=== PATIENT | female | born 1965 | race Two or more races ===

== ENCOUNTER 2016-12-23 05:57 | Day surgery (SDC) | payer OTHER ==
[2016-12-20 14:29] VITALS: BMI 32.2
[~2016-12-23 05:57] MED LIST: HYDROmorphone 1 MG/ML 1 ML SYRINGE IVP PRN; LACTATED RINGERS 1,000 ML IV SCH; MIDAZOLAM 2 MG/2 ML VIAL IV PRN; ONDANSETRON 4 MG/2 ML VIAL IVP ONE; SCOPOLAMINE 1.5MG/72HR PATCH TRANSDERM ONE; ceFAZolin 2 GM in SODIUM CHLORIDE 0.9% 100 ML IVPB ONE
[2016-12-23 06:54] VITALS: TEMP 96.8
[2016-12-23] MEDS ORDERED: LIDOCAINE 1% 20 ML VIAL (10MG/ML) FOR IV START INTRADERMA ONE (07:10)
[2016-12-23] MEDS ORDERED: INSULIN LISPRO (humaLOG) 300 UNIT/3 ML VIAL SQ ONE (07:19)
[2016-12-23 07:23] LABS: Glucose,Whole Blood 271 mg/dL (75-99)
[2016-12-23] MEDS ORDERED: HEPARIN SODIUM,PORCINE 5,000 UNIT/ML 1 ML VIAL SQ ONE (07:35)
--- NOTE | 2016-12-23 07:35 | P.GSHP ---
History of Present Illness H&P Date: 12/23/16 CHIEF COMPLAINT: Cholecystitis HISTORY OF PRESENT ILLNESS: The patient is a 51-year-old female who presents with history of epigastric including right upper quadrant abdominal pain. She underwent diagnostic studies for her gallbladder. Separately her clinical picture was consistent with cholecystitis. Now she presents for surgical intervention. PAST MEDICAL HISTORY: Please see list PAST SURGICAL HISTORY: Please see list MEDICATIONS: Please see list ALLERGIES: Denies. SOCIAL HISTORY: No illicit drug use or recent tobacco use FAMILY HISTORY: Pertinent for gallbladder disease REVIEW OF ORGAN SYSTEMS: CONSTITUTIONAL: No reports of fevers or chills. HEENT: Denies any troubles with the vision or hearing. PHYSICAL EXAM: VITAL SIGNS: Afebrile vital signs stable GENERAL: Well-developed pleasant in no acute distress. HEENT: No scleral icterus. Extraocular movements grossly intact. Moist buccal mucosa. NECK: Supple without lymphadenopathy. CHEST: Unlabored respirations. Equal bilateral excursions. CARDIOVASCULAR: Regular rate regular rhythm rhythm. Distal 2+ pulses. ABDOMEN: Soft, nondistended. Tender along the epigastrium and right upper quadrant. MUSCULOSKELETAL: No clubbing, cyanosis, or edema. NEURO: Cranial nerves II to XII within normal limits. No focal or lateralizing signs. PSYCH: Alert and oriented to person, place and time. ASSESSMENT: 1. Epigastric and right upper quadrant abdominal pain 2. Chronic cholecystitis 3. Symptomatic gallstones. PLAN: 1. Will need a laparoscopic cholecystectomy possible open. Benefits and risks were described. 2. Heparin for DVT prophylaxis 5000 units. 3. Antibiotic prophylaxis. Past Medical History Past Medical History: Cancer, Diabetes Mellitus, Hypertension Additional Past Medical History / Comment(s): SKIN CANCER. NERVE DAMAGE. TINNITIS History of Any Multi-Drug Resistant Organisms: None Reported Past Surgical History: Hysterectomy, Orthopedic Surgery, Tonsillectomy Additional Past Surgical History / Comment(s): RT-CTR. FACIAL SX FOR SKIN CA Past Anesthesia/Blood Transfusion Reactions: Motion Sickness, Postoperative Nausea & Vomiting (PONV) Additional Past Anesthesia/Blood Transfusion Reaction / Comment(s): SLOW TO COME OUT OF ANESTHESIA Past Psychological History: Depression Smoking Status: Former smoker Past Alcohol Use History: None Reported Additional Past Alcohol Use History / Comment(s): QUIT SMOKING 2015 Past Drug Use History: None Reported - Past Family History Mother Family Medical History: No Reported History Medications and Allergies Home Medications Medication Instructions Recorded Confirmed Type Acyclovir [Zovirax] 400 mg PO BID 12/20/16 12/23/16 History Atenolol 100 mg PO DAILY 12/20/16 12/20/16 History Ca Carbonate/Vitamin D3/Vit K 1 each PO DAILY 12/20/16 12/23/16 History [Citracal Soft Chew] Citalopram Hydrobromide [CeleXA] 40 mg PO DAILY 12/20/16 12/20/16 History Cyclobenzaprine [Flexeril] 10 mg PO TID 12/20/16 12/23/16 History Ergocalciferol [Vitamin D2 50,000 units PO GALDAMEZ 12/20/16 12/23/16 History (DRISDOL)] Gabapentin 600 mg PO TID 12/20/16 12/20/16 History Glimepiride [Amaryl] 4 mg PO BID 12/20/16 12/20/16 History Losartan [Cozaar] 50 mg PO DAILY 12/20/16 12/20/16 History Magnesium Oxide [Mag-Ox] 400 mg PO BID 12/20/16 12/23/16 History Naproxen 500 mg PO Q12HR 12/20/16 12/20/16 History metFORMIN HCL 1,000 mg PO BID 12/20/16 12/20/16 History Allergies Allergy/AdvReac Type Severity Reaction Status Date / Time azithromycin Allergy ITCHING, Verified 12/20/16 14:16 N/V, BLURRED [place]ISION clonidine Allergy ITCHING, Verified 12/20/16 14:16 N/V, [place]UR[place] hydrochlorothiazide Allergy ITCHING, Verified 12/20/16 14:16 [From Dyazide] N/V, BLURRED [place]ISION lisinopril Allergy ITCHING, Verified 12/20/16 14:16 N/V, BLURRED [place] methylprednisolone Allergy ITCHING, Verified 12/20/16 14:16 [From Medrol] N/V, BLURRED [place]ISION metoprolol Allergy ITCHING, Verified 12/20/16 14:16 N/V, BLURRED [place]ISION triamterene [From Dyazide] Allergy ITCHING, Verified 12/20/16 14:16 N/V, BLURRED [place]ISION Surgical - Exam Vital Signs Temp Pulse Resp BP Pulse Ox 96.8 F L 69 18 143/88 98 12/23/16 06:53 12/23/16 06:53 12/23/16 06:53 12/23/16 06:53 12/23/16 06:53 Results - Labs Abnormal Lab Results - Last 24 Hours (Table) 12/23/16 Range/Units 07:04 POC Glucose (mg/dL) 271 H (75-99) mg/dL
[2016-12-23] MEDS ORDERED: NEOSTIGMINE 1 MG/ML 10 ML VIAL ONE (07:45)
[2016-12-23] MEDS ORDERED: GLYCOPYRROLATE 0.2 MG/ML 2 ML VIAL ONE (07:45)
[2016-12-23] MEDS ORDERED: SUCCINYLCHOLINE CHLORIDE 100 MG/5 ML SYR IV ONE (07:45)
[2016-12-23] MEDS ORDERED: PROPOFOL 10 MG/ML 20 ML VIAL IV ONE (07:45)
[2016-12-23] MEDS ORDERED: ROCURONIUM BROMIDE 10 MG/ML 10 ML VIAL IV ONE (07:45)
[2016-12-23] MEDS ORDERED: MIDAZOLAM 2 MG/2 ML VIAL ONE (07:45)
[2016-12-23] MEDS ORDERED: fentaNYL (PF) 50 MCG/ML 2 ML AMP ONE (07:45)
[2016-12-23] MEDS ORDERED: KETOROLAC 30 MG/ML 1 ML VIAL ONE (07:45)
[2016-12-23] MEDS ORDERED: LIDOCAINE 1% INJ 10MG/ML (20 ML MDV) ONE (07:45)
[2016-12-23] MEDS ORDERED: BUPIVACAIN-EPI 0.25%-1:200,000 30 ML VIAL SQ ONE (08:08)
[2016-12-23] MEDS ORDERED: LACTATED RINGERS 1,000 ML IV ONE (08:19)
--- NOTE | 2016-12-23 08:42 | P.OP ---
Date of Procedure: 12/23/16 Description of Procedure: SURGEON: BLANCA RAMÍREZ MD WARP TYING MACHINE KNOTTER: None. PREOPERATIVE DIAGNOSES: 1. Chronic Cholecystitis. 2. Symptomatic cholelithiasis. 3. Obesity, BMI 32.3. 4. Uncontrolled diabetes type 2. 5. Hypertensive heart disease without cardiomyopathy. 6. Family history of heart disease. POSTOPERATIVE DIAGNOSES: 1. Chronic Cholecystitis. 2. Symptomatic cholelithiasis. 3. Obesity, BMI 32.3. 4. Uncontrolled diabetes type 2. 5. Hypertensive heart disease without cardiomyopathy. 6. Family history of heart disease. 7. Hepatomegaly. 8. Nonalcoholic fatty liver disease. OPERATION: Laparoscopic cholecystectomy ANESTHESIA: General with 30 mL 0.25% Marcaine with epinephrine. ESTIMATED BLOOD LOSS: 5 mL. SPECIMENS REMOVED: Gallbladder. COMPLICATIONS: None. INDICATIONS: The patient is a 51-year-old female who presents with chronic cholelcystitis. Surgical intervention with a laparoscopic cholecystectomy was described at length including injury to the biliary tree, bleeding, infection, need for further surgery. Informed consent was obtained. DESCRIPTION OF THE PROCEDURE: The patient was brought to the operating room, laid in supine position. After general induction, the abdomen was prepped and draped in a standard sterile fashion. Prior to incision, a timeout protocol was confirmed with surgical team regarding patient's name, procedure to be performed including preoperative medications for which she had received heparin 5000 units subcutaneously as well as bilateral SCDs for DVT prophylaxis. A transverse 5 mm incision was made above the umbilicus and off to the right of the midline. Please note the skin was localized prior to incision. A 0 degree 5-mm laparoscopic trocar entry was performed and entered into the peritoneal cavity. Diagnostic laparoscopy confirmed no injury to bowel, viscera or mesentery. The liver serosa was completely unremarkable. Next, two 5 mm trocars were placed along the right costal margin followed by a 11 mm port at the left upper quadrant. The patient was placed in steep reverse Trendelenburg position with the right side up. The gallbladder fundus was retracted over the dome of the liver. Initial attention was brought to the infundibulum which was gently retracted in the inferior lateral approach. Using a Kittner, the cystic duct including the cystic artery was carefully skeletonized. Using a large clip database security administrator 2 clips were placed proximally, and 2 clip was placed distally along the cystic duct and then cut. Again care was taken to avoid any injury to the biliary tree as the common bile duct was clearly visualized during this portion of dissection. Next, the cystic artery was clipped twice proximally, once distally and then cauterized. Electro-Bovie cautery was used to remove the gallbladder from the hepatic fossa without decompression of the gallbladder. Hemostasis was checked and found to be adequate. The gallbladder was removed from the abdominal cavity using an Endo Catch bag and passed off for further pathological analysis. All instruments and pneumoperitoneum were removed from the abdominal cavity. The fascial defect was less than 8 mm for the 11-mm port site. The rest of incisions were reapproximated using 4-0 Monocryl in an interrupted subcuticular fashion. A total of 30 mL of 0.25% Marcaine with epinephrine was infiltrated to all wounds for postop analgesia. Dermabond was applied to the skin. At the end of the procedure, needle, sponge, and instrument count was verified correct by surgical oncologist. The patient had tolerated the procedure well and was taken to postanesthesia care unit in stable condition. Intraoperative films were discussed and reviewed with the patient's family who were pleased with the level of care. FINDINGS: 1. Chronic cholecystitis. 2. No evidence of bilateral inguinal hernia. 3. Hepatomegaly with fatty liver disease. Plan - Discharge Summary Discharge Medication List Acyclovir [Zovirax] 400 mg PO BID 12/20/16 [History] Atenolol 100 mg PO DAILY 12/20/16 [History] Ca Carbonate/Vitamin D3/Vit K [Citracal Soft Chew] 1 each PO DAILY 12/20/16 [ History] Citalopram Hydrobromide [CeleXA] 40 mg PO DAILY 12/20/16 [History] Cyclobenzaprine [Flexeril] 10 mg PO TID 12/20/16 [History] Ergocalciferol [Vitamin D2 (DRISDOL)] 50,000 units PO GALDAMEZ 12/20/16 [History] Gabapentin 600 mg PO TID 12/20/16 [History] Glimepiride [Amaryl] 4 mg PO BID 12/20/16 [History] Losartan [Cozaar] 50 mg PO DAILY 12/20/16 [History] Magnesium Oxide [Mag-Ox] 400 mg PO BID 12/20/16 [History] Naproxen 500 mg PO Q12HR 12/20/16 [History] metFORMIN HCL 1,000 mg PO BID 12/20/16 [History]
[2016-12-23] MEDS ORDERED: NALOXONE 0.4 MG/ML 1 ML VIAL IV PRN (08:44)
[2016-12-23] MEDS ORDERED: ONDANSETRON 4 MG/2 ML VIAL IVP PRN (08:44)
[2016-12-23] MEDS ORDERED: HYDROcodone/APAP 5-325MG 1 EACH TAB PO PRN (08:44)
[2016-12-23 08:58] VITALS: RESP 16
[2016-12-23] MEDS ORDERED: NAPROXEN 500 MG PO SCH (09:00)
[2016-12-23] MEDS ORDERED: NON-FORMULARY DRUG (Metformin Hcl [Metformin Hcl] 1,000 MG) PO SCH (09:00)
[2016-12-23] MEDS ORDERED: MAGNESIUM OXIDE 400 MG TAB PO SCH (09:00)
[2016-12-23] MEDS ORDERED: CYCLOBENZAPRINE 10 MG TAB PO SCH (09:00)
[2016-12-23] MEDS ORDERED: LOSARTAN 50 MG TAB PO SCH (09:00)
[2016-12-23] MEDS ORDERED: CA CARBONATE PO SCH (09:00)
[2016-12-23] MEDS ORDERED: NON-FORMULARY DRUG (Acyclovir [Zovirax] 400 MG) PO SCH (09:00)
[2016-12-23] MEDS ORDERED: NON-FORMULARY DRUG (Citalopram Hydrobromide [Celexa] 40 MG) PO SCH (09:00)
[2016-12-23] MEDS ORDERED: GLIMEPIRIDE 4 MG TAB PO SCH (09:00)
[2016-12-23] MEDS ORDERED: VITAMIN D3 PO SCH (09:00)
[2016-12-23] MEDS ORDERED: NON-FORMULARY DRUG (Atenolol [Atenolol] 100 MG) PO SCH (09:00)
[2016-12-23] MEDS ORDERED: VIT K PO SCH (09:00)
[2016-12-23] MEDS ORDERED: NON-FORMULARY DRUG (Gabapentin [Gabapentin] 600 MG) PO SCH (09:00)
[2016-12-23 09:15] LABS: Glucose,Whole Blood 243 mg/dL (75-99)
[2016-12-23 10:10] VITALS: PULSE 73
[2016-12-23] MEDS ORDERED: HYDROcodone/APAP 5-325MG 1 EACH TAB PO ONE (10:43)
[2016-12-23 11:11] VITALS: BP 121/80
[2016-12-25] MEDS ORDERED: ERGOCALCIFEROL 50,000 UNIT CAP PO SCH (08:45)
== END 2016-12-23 12:33 | disposition home or self-care (01) ==
LOC: OR 05:57
PROVIDERS: ATTEND Surgery Plastic and Reconstructive Surgery
DX: K81.1 Chronic cholecystitis (principal); K76.0 Fatty (change of) liver, not elsewhere classified; F32.9 Major depressive disorder, single episode, unspecified; E66.9 Obesity, unspecified; Z68.32 Body mass index [BMI] 32.0-32.9, adult; E11.65 Type 2 diabetes mellitus with hyperglycemia; I11.9 Hypertensive heart disease without heart failure; Z79.84 Long term (current) use of oral hypoglycemic drugs; Z79.1 Long term (current) use of non-steroidal anti-inflammatories (NSAID); Z79.899 Other long term (current) drug therapy; Z87.891 Personal history of nicotine dependence; Z88.1 Allergy status to other antibiotic agents; Z88.8 Allergy status to other drugs, medicaments and biological substances; Z82.49 Family history of ischemic heart disease and other diseases of the circulatory system
CPT/HCPCS: 47562; 88304; J2250; J1644; J2710; J0690; J2405; J2001; J3010; J1885; J0330; J2704

== ENCOUNTER 2017-04-27 22:59 | Observation (INO) | payer OTHER ==
[2017-04-27] MEDS ORDERED: KETOROLAC 60 MG/2 ML VIAL IVP STA (23:30)
[2017-04-27] MEDS ORDERED: ONDANSETRON 4 MG/2 ML VIAL IVP STA (23:30)
--- NOTE | 2017-04-27 23:35 | ED ---
General Adult HPI - General Chief complaint: Nausea/Vomiting/Diarrhea Stated complaint: headache/nausea Time Seen by Provider: 04/27/17 23:00 Source: patient, RN notes reviewed Mode of arrival: wheelchair Limitations: no limitations - History of Present Illness Initial comments: This is a 51-year-old female who presents to the emergency department with chronic back pain. Patient had surgery one month ago and had a cage placed at [facility] by Dr. Cameron. Patient comes in today because this morning she woke up started having the chills and states she felt sick. Patient states she went to the urologist where they did a urine and found that she had no infection so they sent to the emergency department at [facility]. [facility] did blood work and urinalysis and CAT scan and according to the patient they didn't find anything. Patient states she still feels sick and still has the chills. Patient states she also has been vomiting since this afternoon at approximately 3:00. Patient denies any diarrhea. Patient cannot get any more specific as to what she means by feeling sick she just states she doesn't feel good and denies any area of specific pain. Patient states her back pain is not changed at all today she states the pain is been steady since she's had the surgery.. Patient denies any numbness or weakness. Patient denies any fevers. Patient denies any cough or difficulty breathing or shortness of breath per patient denies chest pain. Patient denies abdominal pain. Patient denies any dysuria hematuria urinary frequency. - Related Data Home Medications Medication Instructions Recorded Confirmed Acyclovir [Zovirax] 400 mg PO BID 12/20/16 12/23/16 Atenolol 100 mg PO DAILY 12/20/16 12/20/16 Calcium Carb/Vitamin D3/Vit K1 1 each PO DAILY 12/20/16 12/23/16 [Citracal Soft Chew] Citalopram Hydrobromide [CeleXA] 40 mg PO DAILY 12/20/16 12/20/16 Cyclobenzaprine [Flexeril] 10 mg PO TID 12/20/16 12/23/16 Ergocalciferol [Vitamin D2 50,000 units PO GALDAMEZ 12/20/16 12/23/16 (DRISDOL)] Gabapentin 600 mg PO TID 12/20/16 12/20/16 Glimepiride [Amaryl] 4 mg PO BID 12/20/16 12/20/16 Losartan [Cozaar] 50 mg PO DAILY 12/20/16 12/20/16 Magnesium Oxide [Mag-Ox] 400 mg PO BID 12/20/16 12/23/16 Naproxen 500 mg PO Q12HR 12/20/16 12/20/16 metFORMIN HCL 1,000 mg PO BID 12/20/16 12/20/16 Previous Rx's Medication Instructions Recorded Hydrocodone/Acetaminophen [[place] 1 - 2 each PO Q6HR PRN #60 tab 12/23/16 5-325] Allergies Allergy/AdvReac Type Severity Reaction Status Date / Time azithromycin Allergy ITCHING, Verified 04/27/17 23:06 N/V, BLURRED VISION clonidine Allergy ITCHING, Verified 04/27/17 23:06 N/V, BLURRED [place]ISION hydrochlorothiazide Allergy ITCHING, Verified 04/27/17 23:06 [From Dyazide] N/V, BLURRED [place]ISION lisinopril Allergy ITCHING, Verified 04/27/17 23:06 N/V, BLURRED [place] methylprednisolone Allergy ITCHING, Verified 04/27/17 23:06 [From Medrol] N/V, BLURRED [place]ISION metoprolol Allergy ITCHING, Verified 04/27/17 23:06 N/V, BLURRED [place]ISION triamterene [From Dyazide] Allergy ITCHING, Verified 04/27/17 23:06 N/V, BLURRED VISION Review of Systems ROS Statement: Those systems with pertinent positive or pertinent negative responses have been documented in the HPI. ROS Other: All systems not noted in ROS Statement are negative. Past Medical History Past Medical History: Cancer, Diabetes Mellitus, Hypertension Additional Past Medical History / Comment(s): SKIN CANCER. NERVE DAMAGE. TINNITIS History of Any Multi-Drug Resistant Organisms: None Reported Past Surgical History: Hysterectomy, Orthopedic Surgery, Tonsillectomy Additional Past Surgical History / Comment(s): RT-CTR. FACIAL SX FOR SKIN CA Past Anesthesia/Blood Transfusion Reactions: Motion Sickness, Postoperative Nausea & Vomiting (PONV) Additional Past Anesthesia/Blood Transfusion Reaction / Comment(s): SLOW TO COME OUT OF ANESTHESIA Past Psychological History: Depression Smoking Status: Former smoker Past Alcohol Use History: None Reported Past Drug Use History: None Reported - Past Family History Mother Family Medical History: No Reported History General Exam - General Exam Comments Initial Comments: GENERAL: Patient is well-developed and well-nourished. Patient is nontoxic and well- hydrated and is in mild distress. ENT: Neck is soft and supple. No significant lymphadenopathy is noted. Oropharynx is clear. Moist mucous membranes. Neck has full range of motion without eliciting any pain. EYES: The sclera were anicteric and conjunctiva were pink and moist. Extraocular movements were intact and pupils were equal round and reactive to light. Eyelids were unremarkable. PULMONARY: Unlabored respirations. Good breath sounds bilaterally. No audible rales rhonchi or wheezing was noted. CARDIOVASCULAR: There is a regular rate and rhythm without any murmurs gallops or rubs. ABDOMEN: Soft and nontender with normal bowel sounds. No palpable organomegaly was noted. There is no palpable pulsatile mass. SKIN: Skin is clear with no lesions or rashes and otherwise unremarkable. NEUROLOGIC: Patient is alert and oriented x3. Cranial nerves II through XII are grossly intact. Motor and sensory are also intact. Normal speech, volume and content. Symmetrical smile. MUSCULOSKELETAL: Normal extremities with adequate strength and full range of motion. LYMPHATICS: No significant lymphadenopathy is noted PSYCHIATRIC: Patient is very histrionic Limitations: no limitations Course Vital Signs 04/27/17 04/28/17 23:03 01:11 Temperature 97.1 F L Pulse Rate 98 83 Respiratory 18 18 Rate Blood Pressure 149/99 202/88 O2 Sat by Pulse 100 Oximetry Medical Decision Making - Medical Decision Making EKG shows normal sinus rhythm at 89 bpm LA interval is 124 QRS is 86 QT interval 362 QTC is 440. Patient's EKG shows T-wave inversions in leads V1 through V6. Patient also has flattened T waves in 1 and aVL Patient states today he even in the extreme heat she needed blankets on her because she was so cold. I reevaluated the patient she stated she was no longer nauseous and that was helping her but she still felt sick all over but cannot be more specific. Patient is not comfortable going home. - Lab Data Result diagrams: 04/27/17 23:30 04/27/17 23:30 Lab Results 04/27/17 04/27/17 04/27/17 Range/Units 23:30 23:30 23:30 WBC 4.5 (3.8-10.6) k/uL RBC 4.30 (3.80-5.40) m/uL Hgb 12.4 (11.4-16.0) gm/dL Hct 35.1 (34.0-46.0) % MCV 81.7 (80.0-100.0) fL MCH 28.8 (25.0-35.0) pg MCHC 35.3 (31.0-37.0) g/dL RDW 13.8 (11.5-15.5) % Plt Count 186 (150-450) k/uL Neutrophils % 64 % Lymphocytes % 22 % Monocytes % 5 % Eosinophils % 5 % Basophils % 1 % Neutrophils # 2.9 (1.3-7.7) k/uL Lymphocytes # 1.0 (1.0-4.8) k/uL Monocytes # 0.2 (0-1.0) k/uL Eosinophils # 0.2 (0-0.7) k/uL Basophils # 0.0 (0-0.2) k/uL Poikilocytosis Slight PT (9.0-12.0) sec INR (<1.2) APTT (22.0-30.0) sec Sodium 141 (137-145) mmol/L Potassium 3.6 (3.5-5.1) mmol/L Chloride 105 (98-107) mmol/L Carbon Dioxide 20 L (22-30) mmol/L Anion Gap 16 mmol/L BUN 7 (7-17) mg/dL Creatinine 0.60 (0.52-1.04) mg/dL Est GFR (MDRD) Af Amer >60 (>60 ml/min/1.73 sqM) Est GFR (MDRD) Non-Af >60 (>60 ml/min/1.73 sqM) Glucose 202 H (74-99) mg/dL Plasma Lactic Acid Gerber 1.8 (0.7-2.0) mmol/L Calcium 9.8 (8.4-10.2) mg/dL Total Bilirubin 0.9 (0.2-1.3) mg/dL AST 36 (14-36) U/L ALT 51 (9-52) U/L Alkaline Phosphatase 84 (38-126) U/L Total Creatine Kinase (30-135) U/L CK-MB (CK-2) (0.0-2.4) ng/mL CK-MB (CK-2) Rel Index Troponin I (0.000-0.034) ng/mL C-Reactive Protein 24.4 H (<10.0) mg/L Total Protein 7.3 (6.3-8.2) g/dL Albumin 4.6 (3.5-5.0) g/dL Urine Color Urine Appearance (Clear) Urine pH (5.0-8.0) Ur Specific Mcleod (1.001-1.035) Urine Protein (Negative) Urine Glucose (UA) (Negative) Urine Ketones (Negative) Urine Blood (Negative) Urine Nitrite (Negative) Urine Bilirubin (Negative) Urine Urobilinogen (<2.0) mg/dL Ur Leukocyte Esterase (Negative) 04/27/17 04/27/17 04/27/17 Range/Units 23:30 23:30 23:45 WBC (3.8-10.6) k/uL RBC (3.80-5.40) m/uL Hgb (11.4-16.0) gm/dL Hct (34.0-46.0) % MCV (80.0-100.0) fL MCH (25.0-35.0) pg MCHC (31.0-37.0) g/dL RDW (11.5-15.5) % Plt Count (150-450) k/uL Neutrophils % % Lymphocytes % % Monocytes % % Eosinophils % % Basophils % % Neutrophils # (1.3-7.7) k/uL Lymphocytes # (1.0-4.8) k/uL Monocytes # (0-1.0) k/uL Eosinophils # (0-0.7) k/uL Basophils # (0-0.2) k/uL Poikilocytosis PT 11.6 (9.0-12.0) sec INR 1.2 H (<1.2) APTT 24.6 (22.0-30.0) sec Sodium (137-145) mmol/L Potassium (3.5-5.1) mmol/L Chloride (98-107) mmol/L Carbon Dioxide (22-30) mmol/L Anion Gap mmol/L BUN (7-17) mg/dL Creatinine (0.52-1.04) mg/dL Est GFR (MDRD) Af Amer (>60 ml/min/1.73 sqM) Est GFR (MDRD) Non-Af (>60 ml/min/1.73 sqM) Glucose (74-99) mg/dL Plasma Lactic Acid Gerber (0.7-2.0) mmol/L Calcium (8.4-10.2) mg/dL Total Bilirubin (0.2-1.3) mg/dL AST (14-36) U/L ALT (9-52) U/L Alkaline Phosphatase (38-126) U/L Total Creatine Kinase 90 (30-135) U/L CK-MB (CK-2) 1.4 (0.0-2.4) ng/mL CK-MB (CK-2) Rel Index 1.6 Troponin I <0.012 (0.000-0.034) ng/mL C-Reactive Protein (<10.0) mg/L Total Protein (6.3-8.2) g/dL Albumin (3.5-5.0) g/dL Urine Color Light Yellow Urine Appearance Clear (Clear) Urine pH 7.5 (5.0-8.0) Ur Specific Mcleod 1.007 (1.001-1.035) Urine Protein Negative (Negative) Urine Glucose (UA) Negative (Negative) Urine Ketones 2+ H (Negative) Urine Blood Negative (Negative) Urine Nitrite Negative (Negative) Urine Bilirubin Negative (Negative) Urine Urobilinogen <2.0 (<2.0) mg/dL Ur Leukocyte Esterase Negative (Negative) Disposition Clinical Impression: Acute vomiting, Chronic back pain, Rigors Disposition: ADMITTED IP TO THIS [facility] Referrals: Mk Spencer MD [Primary Care Provider] - 1-2 days Time of Disposition: 01:20
[2017-04-27] MEDS: SODIUM CHLORIDE 0.9% 500 ML IV SCH (23:52)
[2017-04-28 00:16] LABS: Basophils % (A) 1 %; CH 29.3; CHCM 35.9; Eosinophils # (A) 0.2 k/uL (0-0.7); Eosinophils % (A) 5 %; HCT 35.1 % (34.0-46.0); HGB 12.4 gm/dL (11.4-16.0); Luc # (Auto) 0.12; Luc % (Auto) 3; Lymphocytes % (A) 22 %; MCH 28.8 pg (25.0-35.0); MCHC 35.3 g/dL (31.0-37.0); MCV 81.7 fL (80.0-100.0); Mean Platelet Volume 7.5; Monocytes # (A) 0.2 k/uL (0-1.0); Monocytes % (A) 5 %; Neutrophils # (A) 2.9 k/uL (1.3-7.7); Neutrophils % (A) 64 %; Poikilocytosis Slight; RDW 13.8 % (11.5-15.5); WBC 4.5 k/uL (3.8-10.6)
[2017-04-28 00:17] LABS: Appearance,Urine Clear (Clear); Bilirubin,Urine Negative (Negative); Glucose,Urine (UA) Negative (Negative); Ketones,Urine 2+ (Negative); Leukocyte Esterase,Urine Negative (Negative); Nitrite,Urine Negative (Negative); PH, Urine 7.5 (5.0-8.0); Protein,Urine Negative (Negative); Specific Gravity,Urine 1.007 (1.001-1.035); UA Billing (MACRO vs. MICRO) CHEM; Urobilinogen,Urine <2.0 mg/dL (<2.0)
[2017-04-28 00:28] LABS: INR 1.2 (<1.2); Partial Thromboplastin Time 24.6 sec (22.0-30.0); Prothrombin Time 11.6 sec (9.0-12.0)
[2017-04-28 00:30] LABS: ALT 51 U/L (9-52); AST 36 U/L (14-36); Alkaline Phosphatase 84 U/L (38-126); Anion Gap 16 mmol/L; Blood Urea Nitrogen 7 mg/dL (7-17); C Reactive Protein 24.4 mg/L (<10.0); Calcium 9.8 mg/dL (8.4-10.2); Carbon Dioxide 20 mmol/L (22-30); Chloride 105 mmol/L (98-107); Glucose 202 mg/dL (74-99); Non-African American GFR(MDRD) >60 (>60 ml/min/1.73 sqM); Potassium 3.6 mmol/L (3.5-5.1); Sodium 141 mmol/L (137-145); Total Bilirubin 0.9 mg/dL (0.2-1.3); Total Protein 7.3 g/dL (6.3-8.2)
[2017-04-28 00:55] LABS: Creatine Kinase 90 U/L (30-135)
[2017-04-28 01:08] LABS: Creatine Kinase MB 1.4 ng/mL (0.0-2.4); Troponin I <0.012 ng/mL (0.000-0.034)
[2017-04-28] MEDS ORDERED: HYDROmorphone 1 MG/ML 1 ML SYRINGE IVP STA (01:15)
[2017-04-28] MEDS ORDERED: ONDANSETRON 4 MG/2 ML VIAL IVP STA (01:15)
[2017-04-28] MEDS ORDERED: SODIUM CHLORIDE 0.9% 1,000 ML IV ONE (01:20)
[2017-04-28] MEDS: SODIUM CHLORIDE 0.9% 500 ML IV SCH (01:34)
[2017-04-28 03:39] VITALS: BMI 31.4
[2017-04-28 07:13] LABS: Glucose,Whole Blood 142 mg/dL (75-99)
[2017-04-28] MEDS: INSULIN LISPRO (humaLOG) 300 UNIT/3 ML VIAL SQ SCH ×4 (07:37→21:18)
[2017-04-28 11:17] LABS: Glucose,Whole Blood 185 mg/dL (75-99)
[2017-04-28] MEDS ORDERED: DOCUSATE 100 MG CAP PO PRN (11:40)
[2017-04-28] MEDS: PANTOPRAZOLE 40 MG TABLET PO SCH (12:02)
[2017-04-28] MEDS: ATENOLOL 50 MG TAB PO SCH (12:02)
[2017-04-28 12:22] LABS: Hemoglobin A1C 7.5 % (4.2-6.1)
--- NOTE | 2017-04-28 12:24 | P.HPIM ---
History of Present Illness This is a 51-year-old female who presents to the emergency department with chronic back pain and had a surgery recently for that patient came in with complaints of being sick and and nausea and vomiting. Patient was subsequently admitted patient's complaints of nonspecific and she says those resolved at this point of time. Patient was also complaining of dysuria although urease negative for any UTI.. Patient states she went to the urologist where they did a urine and found that she had no infection so they sent to the emergency department at [facility]. [facility] did blood work and urinalysis and CAT scan and according to the patient they didn't find anything. Patient states she still feels sick and still has the chills. Patient states she also has been vomiting since yesterday which resolved at this point of time. Patient denies any diarrhea. Patient cannot get any more specific as to what she means by feeling sick she just states she doesn't feel good and denies any area of specific pain. Patient states her back pain is not changed at all today she states the pain is been steady since she's had the surgery.. Patient denies any numbness or weakness. Patient denies any fevers. Patient denies any cough or difficulty breathing or shortness of breath per patient denies chest pain. Patient denies abdominal pain. Patient denies any dysuria hematuria urinary frequency. Review of Systems REVIEW OF SYSTEMS: CONSTITUTIONAL: No fever, no malaise, no fatigue. HEENT: No recent visual problems or hearing problems. Denied any sore throat. CARDIOVASCULAR: No chest pain, orthopnea, PND, no palpitations, no syncope. PULMONARY: No shortness of breath, no cough, no hemoptysis. GASTROINTESTINAL: No diarrhea, , no abdominal pain. Normoactive bowel sounds. NEUROLOGICAL: No headaches, no weakness, no numbness. HEMATOLOGICAL: Denies any bleeding or petechiae. GENITOURINARY: Denies any burning micturition, frequency, or urgency. MUSCULOSKELETAL/RHEUMATOLOGICAL: Denies any joint pain, swelling, or any muscle pain. ENDOCRINE: Denies any polyuria or polydipsia. The rest of the 14-point review of systems is negative. Past Medical History Past Medical History: Cancer, Diabetes Mellitus, Hypertension Additional Past Medical History / Comment(s): SKIN CANCER. NERVE DAMAGE. TINNITIS History of Any Multi-Drug Resistant Organisms: None Reported Past Surgical History: Hysterectomy, Orthopedic Surgery, Tonsillectomy Additional Past Surgical History / Comment(s): RT-CTR. FACIAL SX FOR SKIN CA. back surgery Past Anesthesia/Blood Transfusion Reactions: Motion Sickness, Postoperative Nausea & Vomiting (PONV) Additional Past Anesthesia/Blood Transfusion Reaction / Comment(s): SLOW TO COME OUT OF ANESTHESIA Past Psychological History: Depression Smoking Status: Former smoker Past Alcohol Use History: None Reported Additional Past Alcohol Use History / Comment(s): QUIT SMOKING 2015 Past Drug Use History: None Reported - Past Family History Mother Family Medical History: No Reported History Medications and Allergies Home Medications Medication Instructions Recorded Confirmed Type Acyclovir [Zovirax] 400 mg PO TID 12/20/16 04/28/17 History Atenolol 100 mg PO DAILY 12/20/16 04/28/17 History Citalopram Hydrobromide [CeleXA] 40 mg PO DAILY 12/20/16 04/28/17 History Gabapentin 600 mg PO TID 12/20/16 04/28/17 History Glimepiride [Amaryl] 4 mg PO BID 12/20/16 04/28/17 History Losartan [Cozaar] 50 mg PO DAILY 12/20/16 04/28/17 History metFORMIN HCL 1,000 mg PO BID 12/20/16 04/28/17 History Docusate [Colace] 100 - 200 mg PO DAILY PRN 04/28/17 04/28/17 History oxyCODONE-APAP 10-325MG [Percocet 1 - 2 tab PO Q6HR PRN 04/28/17 04/28/17 History 10-325 mg] Allergies Allergy/AdvReac Type Severity Reaction Status Date / Time azithromycin Allergy ITCHING, Verified 04/28/17 08:25 N/V, BLURRED VISION clonidine Allergy ITCHING, Verified 04/28/17 08:25 N/V, BLURRED VISION hydrochlorothiazide Allergy ITCHING, Verified 04/28/17 08:25 [From Dyazide] N/V, BLURRED VISION lisinopril Allergy ITCHING, Verified 04/28/17 08:25 N/V, BLURRED VISION methylprednisolone Allergy ITCHING, Verified 04/28/17 08:25 [From Medrol] N/V, BLURRED VISION metoprolol Allergy ITCHING, Verified 04/28/17 08:25 N/V, BLURRED VISION triamterene [From Dyazide] Allergy ITCHING, Verified 04/28/17 08:25 N/V, BLURRED VISION Physical Exam Vitals: Vital Signs Temp Pulse Pulse Resp BP BP Pulse Ox 04/28/17 07:00 96.9 F L 99 18 145/91 97 04/28/17 02:14 95 18 160/77 96 04/28/17 02:01 98.0 F 101 H 16 147/68 94 L 04/28/17 01:48 88 18 171/82 97 04/28/17 01:11 83 18 202/88 04/27/17 23:03 97.1 F L 98 18 149/99 100 Intake and Output 04/27/17 04/28/17 04/28/17 22:59 06:59 14:59 Other: Voiding Method Bedside Commode # Voids 0 1 Weight 80.5 kg REVIEW OF SYSTEMS: CONSTITUTIONAL: No fever, no malaise, no fatigue. HEENT: No recent visual problems or hearing problems. Denied any sore throat. CARDIOVASCULAR: No chest pain, orthopnea, PND, no palpitations, no syncope. PULMONARY: No shortness of breath, no cough, no hemoptysis. GASTROINTESTINAL: No diarrhea, no abdominal pain. Normoactive bowel sounds. NEUROLOGICAL: No headaches, no weakness, no numbness. HEMATOLOGICAL: Denies any bleeding or petechiae. GENITOURINARY: Denies any burning micturition, frequency, or urgency. MUSCULOSKELETAL/RHEUMATOLOGICAL: Denies any joint pain, swelling, or any muscle pain. ENDOCRINE: Denies any polyuria or polydipsia. The rest of the 14-point review of systems is negative. Results CBC & Chem 7: 04/27/17 23:30 04/27/17 23:30 Labs: Abnormal Lab Results - Last 24 Hours (Table) 04/27/17 04/27/17 04/27/17 Range/Units 23:30 23:30 23:45 INR 1.2 H (<1.2) Carbon Dioxide 20 L (22-30) mmol/L Glucose 202 H (74-99) mg/dL POC Glucose (mg/dL) (75-99) mg/dL C-Reactive Protein 24.4 H (<10.0) mg/L Urine Ketones 2+ H (Negative) 04/28/17 04/28/17 Range/Units 07:11 11:14 INR (<1.2) Carbon Dioxide (22-30) mmol/L Glucose (74-99) mg/dL POC Glucose (mg/dL) 142 H 185 H (75-99) mg/dL C-Reactive Protein (<10.0) mg/L Urine Ketones (Negative) Thrombosis Risk Factor Assmnt - Choose All That Apply Any of the Below Risk Factors Present?: Yes Each Factor Represents 1 point: Age 41-60 years, Obesity (BMI >25) Other Risk Factors: No Other congenital or acquired thrombophilia - If yes, enter type in comment: No Thrombosis Risk Factor Assessment Total Risk Factor Score: 2 Thrombosis Risk Factor Assessment Level: Low Risk Assessment and Plan Plan: #1 nausea: Probably related to gastritis patient will be discharged and parasite patient's symptoms improved will advance her diet and patient was subsequently discharged. #2 mild sinus tachycardia, reflux tachycardia from not being on atenolol which will resume. #3 hypertension #4 hyperlipidemia with well-controlled blood sugars here in the hospital hemoglobin A1c is not available at this time #5 chronic low back pain #6 gastroesophageal reflux disease
--- NOTE | 2017-04-28 12:25 | P.DS ---
Providers Date of admission: 04/28/17 01:20 Attending physician: Reuben Joiner Primary care physician: Mk Spencer Hospital Course: Please refer to HPI Plan - Discharge Summary New Discharge Prescriptions: New Omeprazole [PriLOSEC] 40 mg PO AC-BRKFST #14 capsule. No Action Acyclovir [Zovirax] 400 mg PO TID Losartan [Cozaar] 50 mg PO DAILY Gabapentin 600 mg PO TID Atenolol 100 mg PO DAILY metFORMIN HCL 1,000 mg PO BID Glimepiride [Amaryl] 4 mg PO BID Citalopram Hydrobromide [CeleXA] 40 mg PO DAILY oxyCODONE-APAP 10-325MG [Percocet 10-325 mg] 1 - 2 tab PO Q6HR PRN PRN Reason: Pain Docusate [Colace] 100 - 200 mg PO DAILY PRN PRN Reason: Constipation Discharge Medication List Acyclovir [Zovirax] 400 mg PO TID 12/20/16 [History] Atenolol 100 mg PO DAILY 12/20/16 [History] Citalopram Hydrobromide [CeleXA] 40 mg PO DAILY 12/20/16 [History] Gabapentin 600 mg PO TID 12/20/16 [History] Glimepiride [Amaryl] 4 mg PO BID 12/20/16 [History] Losartan [Cozaar] 50 mg PO DAILY 12/20/16 [History] metFORMIN HCL 1,000 mg PO BID 12/20/16 [History] Docusate [Colace] 100 - 200 mg PO DAILY PRN 04/28/17 [History] Omeprazole [PriLOSEC] 40 mg PO AC-BRKFST #14 capsule. 04/28/17 [Rx] oxyCODONE-APAP 10-325MG [Percocet 10-325 mg] 1 - 2 tab PO Q6HR PRN 04/28/17 [ History] Follow up Appointment(s)/Referral(s): Mk Spencer MD [Primary Care Provider] - 1 Week Ney Cameron MD [REFERRING] - As Needed (Orthopedic surgeon- as directed. ) Activity/Diet/Wound Care/Special Instructions: Cardiac, diabetic diet. Fall precautions, up with assist.
[2017-04-28] MEDS: oxyCODONE-APAP 10-325MG 1 EACH TAB PO PRN ×2 (12:52→18:25)
[2017-04-28] MEDS: ONDANSETRON 4 MG/2 ML VIAL IVP PRN ×2 (13:25→21:25)
[2017-04-28 14:51] VITALS: RESP 16
[2017-04-28 16:59] LABS: Glucose,Whole Blood 189 mg/dL (75-99)
[2017-04-28] MEDS: GABAPENTIN 300 MG CAP PO SCH ×2 (17:06→21:19)
[2017-04-28] MEDS: ACYCLOVIR 200 MG CAP PO SCH ×2 (17:06→21:19)
[2017-04-28 21:06] LABS: Glucose,Whole Blood 146 mg/dL (75-99)
[2017-04-28] MEDS: metFORMIN 500 MG TAB PO SCH (21:18)
[2017-04-28] MEDS: GLIMEPIRIDE 4 MG TAB PO SCH (21:18)
[2017-04-29] MEDS: oxyCODONE-APAP 10-325MG 1 EACH TAB PO PRN ×2 (02:15→08:35)
[2017-04-29 07:02] LABS: Glucose,Whole Blood 89 mg/dL (75-99)
[2017-04-29 07:16] VITALS: BP 149/82; PULSE 73; TEMP 97.3
[2017-04-29] MEDS: ONDANSETRON 4 MG/2 ML VIAL IVP PRN (08:31)
[2017-04-29] MEDS: ATENOLOL 50 MG TAB PO SCH (08:33)
[2017-04-29] MEDS: GLIMEPIRIDE 4 MG TAB PO SCH (08:33)
[2017-04-29] MEDS: PANTOPRAZOLE 40 MG TABLET PO SCH (08:33)
[2017-04-29] MEDS: GABAPENTIN 300 MG CAP PO SCH (08:33)
[2017-04-29] MEDS: metFORMIN 500 MG TAB PO SCH (08:34)
[2017-04-29] MEDS: ACYCLOVIR 200 MG CAP PO SCH (08:34)
[2017-04-29] MEDS: INSULIN LISPRO (humaLOG) 300 UNIT/3 ML VIAL SQ SCH (08:40)
[2017-04-29] MEDS ORDERED: CITALOPRAM HYDROBROMIDE 20 MG TAB PO SCH (09:00)
[2017-04-29] MEDS ORDERED: LOSARTAN 50 MG TAB PO SCH (09:00)
== END 2017-04-29 11:10 | disposition home or self-care (01) ==
LOC: EC 22:59 → 4MS4W 04-28 01:20
PROVIDERS: ADMIT Internal Medicine; ATTEND Internal Medicine
DX: R11.2 Nausea with vomiting, unspecified (principal); R68.83 Chills (without fever); R30.0 Dysuria; R00.0 Tachycardia, unspecified; I10 Essential (primary) hypertension; E78.5 Hyperlipidemia, unspecified; G89.29 Other chronic pain; M54.5 Low back pain; K21.9 Gastro-esophageal reflux disease without esophagitis; E11.9 Type 2 diabetes mellitus without complications; F32.9 Major depressive disorder, single episode, unspecified; Z79.899 Other long term (current) drug therapy; Z79.84 Long term (current) use of oral hypoglycemic drugs; Z85.828 Personal history of other malignant neoplasm of skin; Z87.891 Personal history of nicotine dependence; Z88.1 Allergy status to other antibiotic agents; Z88.8 Allergy status to other drugs, medicaments and biological substances
CPT/HCPCS: 96376 ×4; 96361 ×5; 96374; 96375 ×4; 99285; 36415; 93005; 80053; 83036; 82550; 82553; 83605; 84484; 85025; 85610; 85730; 86140; 81003; 87040; 87086; 87077; 87186; G0378 ×2; J2405 ×3; J1885; J1170